=== PATIENT | male | born 1960 | race Caucasian/White ===

== ENCOUNTER 2017-01-12 20:59 | Emergency (ER) | payer MEDICARE, OTHER ==
[~2017-01-12 20:59] MED LIST: AMBIEN10 MG PO; ATENOLOL25 MG PO; AUGMENTIN 875-1 EAC2 PO; CHANTIX1 MG PO; HYDROCODONE/APA1 TAB PO; K-DUR20 MEQ PO; LORCET 10/650 T1 TAB PO; NORCO 5-325 TA1 EACH PO; OMEPRAZOLE20 M1 PO; OMEPRAZOLE20 MG PO; PROPRANOLOL HCL20 MG PO; PROPYLTHIOURACI50 MG PO; TIROSINT137 MCG PO; WELLBUTRIN75 MG PO
[2017-01-12] MEDS ORDERED: CHANTIX0.5 MG/TAB PO (21:10)
[2017-01-12 21:39] LABS: BASO % 0.2 % (0-2); EOS % 2.1 % (0-7); EOSINOPHIL ABSOLUTE COUNT 0.2 tho/cmm (0.0-0.7); HCT-HEMATOCRIT 42.4 % (36.0-53.5); HGB-HEMOGLOBIN 14.5 gm/dl (13.5-17.0); IMMATURE GRANULOCYTES ABSOLUTE 0.01 tho/cmm (0-0.03); IMMATURE GRANULOCYTES PERCENT 0.1 % (0-0.3); LYMPH ABSOLUTE COUNT 4.4 tho/cmm (0.8-4.5); MCH (MEAN CORPUSCULAR HGB) 30.6 pg (28.0-32.0); MCHC MEAN CORPUSCULAR HGB CONC 34.2 % (32.0-36.0); MCV (MEAN CELL VOLUME) 89.5 fl (82.0-96.0); MEAN PLATELET VOLUME 8.9 cmc (9.4-12.4); MONO % 11.9 % (0-12); MONOCYTE ABSOLUTE COUNT 1.2 tho/cmm (0.0-1.2); NEUTROPHIL ABSOLUTE COUNT 4.4 tho/cmm (1.6-8.0); NEUTROPHIL-AUTOMATED 4.4 tho/cmm (1.6-8.0); NEUTROPHILS % 42.7 % (40-80); PLATELET COUNT 235 tho/cmm (150-450); RED BLOOD COUNT 4.74 mil/cmm (4.40-5.70); RED CELL DISTRIBUTION WIDTH 12.9 % (12.4-16.4); WHITE BLOOD COUNT 10.3 tho/cmm (4.0-10.0)
[2017-01-12 21:56] LABS: ANION GAP 10 mmol/L (0-20); BLOOD UREA NITROGEN 23 mg/dl (6-24); CALCIUM 8.5 mg/dl (8.5-10.5); CARBON DIOXIDE-VENOUS 28 mmol/L (22-32); CHLORIDE 105 mmol/l (96-110); CREATININE 1.02 mg/dl (0.60-1.30); GLUCOSE 81 mg/dL (70-110); POTASSIUM 4.2 mmol/L (3.7-5.1); SODIUM 139 mmol/L (135-145); eGFR VALUE FOR BLACK >90 mL/Min
== END 2017-01-12 22:35 ==
LOC: EDMED 20:59
PROVIDERS: Emergency Medicine
DX: R07.89 Other chest pain (principal); K21.9 Gastro-esophageal reflux disease without esophagitis; J44.9 Chronic obstructive pulmonary disease, unspecified; E07.9 Disorder of thyroid, unspecified; Z87.891 Personal history of nicotine dependence; Z95.1 Presence of aortocoronary bypass graft; Z79.890 Hormone replacement therapy; Z79.899 Other long term (current) drug therapy
CPT/HCPCS: J2270